=== PATIENT | female | born 1940 ===

== ENCOUNTER 2017-11-22 08:40 | Emergency (ER) | payer MEDICAID, MEDICARE ==
[2017-11-22 09:10] VITALS: BP 139/55
--- NOTE | 2017-11-22 09:38 | RAD ---
Indication: Productive cough. 2 views of the chest demonstrate no mediastinal shift. Heart is of normal size and configuration. Lung platt demonstrate no pleural fluid, pneumonia or pneumothorax. Overall no changes noted since April 17, 2014. IMPRESSION: No active cardiopulmonary disease is present.
--- NOTE | 2017-11-22 09:47 | UC ---
Respiratory Complaint HPI - HPI Summary HPI Summary: Cough, congestion, fever for about 4 days. she is coughing to the point of vomiting. She denies chronic lung disease like asthma or copd. Desiree is a smoker. She does not have inhalers or respiratory meds. - History of Current Complaint Chief Complaint: UCRespiratory Stated Complaint: CONGESTION, COUGH Time Seen by Provider: 11/22/17 09:16 Hx Obtained From: Patient Onset/Duration: Gradual Onset, Lasting Days Timing: Constant Severity Initially: Moderate Severity Currently: Moderate Pain Intensity: 3 Character: Cough: Productive Aggravating Factors: Deep Breaths, Recumbent Position Alleviating Factors: Upright Position, Spontaneous Resolution Associated Signs And Symptoms: Positive: Fever, Chills, Pleuritic Chest Pain, URI, Nasal Congestion. Negative: Hemoptysis, Dizziness, Calf Pain, Calf Swelling - Allergies/Home Medications Allergies/Adverse Reactions: Allergies Allergy/AdvReac Type Severity Reaction Status Date / Time azithromycin Allergy GI Upset Verified 11/22/17 09:06 [From Zithromax Z-Jessee] PMH/Surg Hx/FS Hx/Imm Hx Previously Healthy: No - smoker. - Surgical History Surgical History: Yes Surgery Procedure, Year, and Place: 1972 [place]Y [place]ERECTOMY [place]. [address] [facility] 2009 5 stents. 07/27/[address] [facility]. 08/20/[address] [facility]. 12/[address] [facility]. BILATERAL ARTIFICIAL LENSES - Family History Known Family History: Positive: Other - no related FH of respiratory disease. - Social History Alcohol Use: None Substance Use Type: None Smoking Status (MU): Light Every Day Tobacco Smoker Type: Cigarettes Amount Used/How Often: 6 cigarrettes daily Review of Systems Constitutional: Fever Respiratory: Cough All Other Systems Reviewed And Are Negative: Yes Physical Exam Triage Information Reviewed: Yes Appearance: Well-Appearing, No Pain Distress, Well-Nourished Vital Signs: Initial Vital Signs Temp 99.5 F 11/22/17 09:01 Pulse 98 11/22/17 09:01 Resp 18 11/22/17 09:01 BP 139/55 11/22/17 09:01 Pulse Ox 95 11/22/17 09:01 Vital Signs Reviewed: Yes Eyes: Positive: Conjunctiva Clear ENT: Positive: Normal ENT inspection, Pharynx normal, Nasal congestion, TMs normal, Uvula midline. Negative: Pharyngeal erythema, Nasal drainage, TM bulging, TM dull, TM red, Tonsillar swelling, Tonsillar exudate, Trismus, Muffled voice Neck: Positive: Supple, Nontender, No Lymphadenopathy Respiratory: Positive: Lungs clear, Normal breath sounds, No respiratory distress, No accessory muscle use. Negative: Respiratory distress, Decreased breath sounds, Accessory muscle use, Crackles, Rhonchi, Stridor, Wheezing Cardiovascular: Positive: RRR, No Murmur. Negative: Tachycardia Abdomen Description: Positive: Nontender, No Organomegaly. Negative: Distended , Guarding Musculoskeletal: Positive: Strength Intact, ROM Intact, Edema @ - rashad feet. No calf tenderness. neg homans rashad. Neurological: Positive: Alert, Muscle Tone Normal. Negative: Fatigued Psychological: Positive: Age Appropriate Behavior Skin: Negative: rashes UC Diagnostic Evaluation - Laboratory O2 Sat by Pulse Oximetry: 95 Respiratory Course/Dx - Course Course Of Treatment: Fever, productive cough, possible pertussis. We will treat with azithromycin. She is non toxic and afebrile now. - Differential Dx/Diagnosis Provider Diagnoses: acute bacterial bronchitis. Discharge - Sign-Out/Discharge Documenting (check all that apply): Discharge/Admit/Transfer - Discharge Plan Condition: Good Disposition: HOME Prescriptions: Azithromyxin JESSEE (NF) [Z-Jessee (Zithromax) 250 mg tabs #6] 2 tab PO .TODAY, THEN 1 DAILY #6 tab Benzonatate CAP* [Tessalon 100 MG CAP*] 100 mg PO TID PRN #30 cap PRN Reason: Cough Patient Education Materials: Antitussives (By mouth), Fever in Adults (ED) Referrals: Jeyson Choudhary MD [Primary Care Provider] - 2 Days - Billing Disposition and Condition Condition: GOOD Disposition: Home
[2017-11-23 18:51] LABS: Bordetella pertussis PCR Negative
--- NOTE | 2017-11-23 21:23 | UC ---
- Progress Note Progress Note: Pertussis negative--can advise her test was negative. Should continue treatment. Discharge - Sign-Out/Discharge Documenting (check all that apply): Discharge/Admit/Transfer - Discharge Plan Condition: Good Disposition: HOME Prescriptions: Azithromyxin PHILIP ([facility]) [Z-Philip (Zithromax) 250 mg tabs #6] 2 tab PO .TODAY, THEN 1 DAILY #6 tab Benzonatate CAP* [Tessalon 100 MG CAP*] 100 mg PO TID PRN #30 cap PRN Reason: Cough Patient Education Materials: Antitussives (By mouth), Fever in Adults (ED) Referrals: Kenrick ROMANO,Jeyson Zimmerman [Primary Care Provider] - 2 Days - Billing Disposition and Condition Condition: GOOD Disposition: Home
== END 2017-11-22 10:02 | disposition home or self-care (01) ==
LOC: UCCORT 08:40
DX: J20.8 Acute bronchitis due to other specified organisms (principal); Z88.1 Allergy status to other antibiotic agents; F17.210 Nicotine dependence, cigarettes, uncomplicated
CPT/HCPCS: 71046; 87798; 99202; G0463